=== PATIENT | female | born 1980 | race Two or more races ===

== ENCOUNTER 2023-07-29 14:28 | Emergency (ER) | payer MEDICAID, OTHER ==
[~2023-07-29] VITALS: Ht 139.7 cm; Wt 60.7 kg
[2023-07-29 16:34] VITALS: BP 137/94; PULSE 96; RESP 20; TEMP 98.1; O2SAT 96
[2023-07-29] MEDS ORDERED: BENZ200C64 PO (16:51)
[2023-07-29] MEDS ORDERED: CETI5TAB6 PO (16:51)
[2023-07-29] MEDS ORDERED: PROM1SOL4 PO (16:51)
[2023-07-29] MEDS ORDERED: ALBU108A5 IN (16:51)
[2023-07-29] MEDS: PROMETHAZINE W/CODEINE 5 ML ORAL SYRUP PO ONE (17:00)
== END 2023-07-29 17:37 | disposition home or self-care (01) ==
LOC: ER 14:28
DX: J40 Bronchitis, not specified as acute or chronic (principal)

== ENCOUNTER 2023-08-17 17:49 | Emergency (ER) | payer MEDICAID ==
[~2023-08-17] VITALS: Ht 154.9 cm; Wt 60.4 kg
[~2023-08-17 17:49] MED LIST: ALBU108A5 IN; BENZ200C64 PO; CETI5TAB6 PO; PROM1SOL4 PO
[2023-08-17] MEDS: SODIUM CHLORIDE 0.9% 1,000 ML IVB ONE (18:36)
[2023-08-17 18:39] LABS: Urine Bacteria FEW /hpf (None Seen); Urine Blood Negative /uL (Negative); Urine Clarity Clear (Clear); Urine Color Yellow (Yellow); Urine Mucus FEW (None Seen); Urine Protein, UAD TRACE (Negative); Urine Specific Gravity 1.034 (1.001-1.035); Urine Urobilinogen Normal (Negative); Urine WBC 11 /hpf (0 - 5); Urine pH 5.5 (5.0-9.0)
[2023-08-17] MEDS: PROCHLORPERAZINE EDISYLATE 5 MG/ML 2ML VIAL IV ONE (18:39)
[2023-08-17] MEDS: PANTOPRAZOLE 40 MG/10 ML VIAL INJ IV ONE (18:39)
[2023-08-17] MEDS: MORPHINE SULFATE 4 MG/ML SYR/VIAL IV ONE (18:40)
[2023-08-17 18:48] LABS: Basophils # (auto) 0.1 10 ^3/uL (0-0.2); Basophils % (auto) 0.6 % (0.0-2.0); Eosinophils # (auto) 0 10 ^3/uL (0-0.8); Eosinophils % (auto) 0.1 % (0.0-7.0); Hematocrit 42.4 % (36.0-46.0); Hemoglobin 13.9 g/dL (12.2-16.2); Lymphocytes # (auto) 1.4 10 ^3/uL (0.4-5.4); Lymphocytes % (auto) 10.9 % (10.0-50.0); Mean Corpuscular Hemoglobin 28.3 pg (28.0-32.0); Mean Corpuscular Hgb Conc. 32.8 g/dL (32.0-36.0); Mean Corpuscular Volume 86.2 fL (80.0-100.0); Monocytes # (auto) 0.4 10 ^3/uL (0-1.3); Monocytes % (auto) 3.5 % (0.0-12.0); Neutrophils # (auto) 10.7 10 ^3/uL (1.6-8.6); Neutrophils % (auto) 84.9 % (37.0-80.0); Red Blood Cells 4.92 10^6/uL (4.0-5.20); Red Cell Distribution Width 13.6 % (11.8-14.3); White Blood Cell 12.6 10^3/uL (4.4-10.8)
[2023-08-17 19:02] LABS: Alanine Aminotransferase 22 U/L (7-40); Albumin 4.6 g/dL (3.2-4.8); Alkaline Phosphatase 90 U/L (46-116); Anion Gap 6 (5-15); Aspartate Aminotransferase 19 U/L (13-40); BUN/Creatinine Ratio 19.2 (10.0-20.0); Bilirubin, Total 0.3 mg/dL (0.2-1.0); Blood Urea Nitrogen 14 mg/dL (9-23); Calcium 10.5 mg/dL (8.7-10.4); Carbon Dioxide 29 mmol/L (20-30); Chloride 102 mmol/L (98-107); Glucose 151 mg/dL (74-106); Lipase 39 U/L (12-53); Potassium 4.6 mmol/L (3.5-5.1); Sodium 137 mmol/L (136-145)
[2023-08-17] MEDS ORDERED: PANT40TA2 PO ×2 (20:04→22:08)
[2023-08-17] MEDS ORDERED: ZOFR4T PO ×2 (20:04→22:08)
[2023-08-17 20:47] VITALS: PULSE 82; RESP 16; O2SAT 96
[2023-08-17 22:00] VITALS: BP 101/58; PULSE 75; RESP 13; TEMP 97.9; O2SAT 99
== END 2023-08-17 22:26 | disposition home or self-care (01) ==
LOC: ER 17:49
DX: K29.00 Acute gastritis without bleeding (principal); R10.13 Epigastric pain; Z98.890 Other specified postprocedural states; Z79.899 Other long term (current) drug therapy
CPT/HCPCS: 36415; 76705; 80053; 81001; 83690; 85025; 96361; 96374; 96375; 99285; C9113; J0780; J2270; J7030